=== PATIENT | female | born 1955 | race Caucasian/White ===

== ENCOUNTER → 2016-11-29 13:41 | Outpatient (CLI) | payer BC ==
[2014-01-28 07:41] VITALS: BMI 39.6
[~2016-11-29 13:41] MED LIST: AMITRIPTYLINE H50 MG PO; CATAFLAM50 MG PO; DEXILANT60 MG PO; MICARDIS80 MG PO; PRAVACHOL20 MG PO; SYMBICORT 80-10.2 GM INH; SYNTHROID200 MC1 PO; VENTOLIN/PR2 MG/5 ML; XARELTO20 MG PO; ZOLOFT100 MG PO
== END | disposition home or self-care (01) ==
LOC: D.MRI 13:41
DX: M54.16 Radiculopathy, lumbar region (principal)

== ENCOUNTER 2017-06-26 08:46 | Day surgery (SDC) | payer BC ==
[~2017-06-26] VITALS: Ht 167.6 cm; Wt 111.4 kg
--- NOTE | ~2017-06-26 | OP ---
PATIENT NAME: MACK MCDONALD MEDICAL RECORD: [id number] :59 LOCATION:[facility] ADMISSION DATE: SURGEON: GARY GALLARDO MD DATE OF OPERATION: 06/26/2017 PREOPERATIVE DIAGNOSIS: History of colon polyps. POSTOPERATIVE DIAGNOSES: History of colon polyps with no evidence of regrowth of any polyp. No polyps, no masses. Minimal sigmoid diverticulosis. PROCEDURE: Total colonoscopy to cecum. SURGEON: Gary Gallardo MD MACHINING AND ASSEMBLY SUPERVISOR: None. BLOOD LOSS: Minimal. ANESTHESIA: IV sedation. COMPLICATIONS: None. ENDOSCOPIC COURSE: The patient was conveyed to the endoscopy suite electively on 06/26/2017. IV sedation was induced by the anesthesia staff. The patient was placed in the Mccoy position. A digital rectal examination was performed. A colonoscope was inserted through the anus. It was easily advanced to the cecum. The prep was adequate. I slowly withdrew the endoscope. The pullback was greater than a 14-minute pullback. I irrigated and aspirated extensively. A combination of normal imaging and narrow band imaging were utilized. I noted no colonic polyps or masses. A retroflexed view was obtained in the rectum. I then unretroflexed the scope and removed it under direct vision. There is no need for the patient to follow up with me in the office as no biopsies were obtained. I will plan for her next colonoscopy to be a surveillance colonoscopy in 3 years. TRANSINT:[id number] Voice Confirmation ID: [id number] DOCUMENT ID: [id number] GARY GALLARDO MD at 1518 CC: JEOVANNY ANN DO [id number] DICTATION DATE: 06/26/17 1348 WIG MAKER: 06/26/17 1412 [facility] 06/26/17 [place] [address]
[2017-06-26] MEDS ORDERED: BREO ELLIPTA 11 EACH INH (09:29)
[2017-06-26] MEDS ORDERED: ZANAFLEX4 MG (09:29)
[2017-06-26 09:32] LABS: BASOPHILS 0.7 % (0-2); EOSINOPHILS 1.7 % (0-7); HEMATOCRIT 39.4 % (36.0-48.0); IMMATURE GRANULOCYTES 0.2 % (0-5); LYMPHOCYTES 27.5 % (15-50); MCV 87.9 fL (80.0-100.0); MEAN PLATELET VOLUME 10.2 fL (7.4-10.4); NEUTROPHILS 58.9 % (40-80); PLATELET COUNT 231 10x3/uL (130-400); RBC 4.48 10x6/uL (4.00-5.40); RDW 13.2 % (11.5-14.5); WBC 5.8 10x3/uL (4.8-10.8)
[2017-06-26 09:37] VITALS: BP 153/92; Ht 167.6 cm; Wt 111.4 kg
[2017-06-26 09:55] LABS: CALC OSMOLALITY 277 mosm/kg (275-300); CALCIUM 8.8 mg/dL (8.5-10.1); CARBON DIOXIDE 28.6 mmol/L (21.0-32.0); CHLORIDE - SERUM 104 mmol/L (98-107); CREATININE - SERUM 0.8 mg/dL (0.6-1.3); SODIUM 139 mmol/L (136-145); UREA NITROGEN 14 mg/dL (7-18); eGFR NON AFRICAN AMERICAN 77 mL/min (90-120)
[2017-06-26 10:00] LABS: GLUCOSE 88 mg/dL (74-106); POTASSIUM - SERUM 3.4 mmol/L (3.5-5.1)
== END 2017-06-26 14:01 | disposition home or self-care (01) ==
LOC: D.OPS 08:46
PROVIDERS: Anesthesiology
DX: K63.5 Polyp of colon (principal); J45.909 Unspecified asthma, uncomplicated; I10 Essential (primary) hypertension; E03.9 Hypothyroidism, unspecified; K21.9 Gastro-esophageal reflux disease without esophagitis; G47.30 Sleep apnea, unspecified; Z01.812 Encounter for preprocedural laboratory examination

== ENCOUNTER → 2017-11-14 09:49 | Outpatient (CLI) | payer BC ==
[2017-06-26 09:37] VITALS: BMI 39.6
[~2017-11-14 09:49] MED LIST changes: +BREO ELLIPTA 11 EACH INH; +ZANAFLEX4 MG
== END | disposition home or self-care (01) ==
LOC: D.MRI 09:49
DX: M54.16 Radiculopathy, lumbar region (principal)

== ENCOUNTER → 2018-02-07 13:47 | Outpatient (CLI) | payer BC ==
[2017-06-26 09:37] VITALS: BMI 39.6
== END | disposition home or self-care (01) ==
LOC: D.RAD 13:47
DX: M54.16 Radiculopathy, lumbar region (principal)